=== PATIENT | female | born 2000 | race Asian ===

== ENCOUNTER 2025-06-27 06:21 | Outpatient (REF) | payer OTHER, SELFPAY ==
--- OUTSIDE RECORDS SUMMARY | 2025-06-24 18:05 | XMS_ITS | Encounter Summary ---
Author Organization [facility] Address [address] [place] [id number] Phone Care Team Providers Care Tool Shaper Set Up Operator Name Role Phone Pcp, Unknown Primary Care Provider Unavailabl e Reason for Visit * Reason Comments Abdominal Pain Constipation Encounter Details Date Type Department Care Team (Late st Contact Info) Description 06/24/2025 6:05 PM EDT - 06/24/2025 8:05 PM EDT Emergency [facility] [address] [place] [address] Roma Thao MD [address] [place] [address] [email or web address] Discharge Disposition: Home or Self Care Social History Tobacco Use Types Packs/Day Years Used Date Smoking Tobacco: Never Assessed Education Answer Date Recorded Are you interested in more education? Not on jenny e 06/24/2025 Are you concerned about learning? Not on file 06/24/2025 No 06/24/2025 No 06/24/2025 Digital Access Answer Date Recorded No 06/24/2025 No 06/24/2025 Reliable internet access at home? Not on file 06/24/2025 Device with a working camera? Not on file Intimate Partner Violence Answer Date R ecorded Are you denied basic needs s uch as food, clothing, or medical care? No 06/24/2025 In the past 12 months have y ou been in a relationship with a person who hurts, threatens, or tries to control you? No 06/24/2025 Are you denied basic needs s uch as food, clothing, or medical care? No 06/24/2025 In the past 12 months have y ou been in a relationship with a person who hurts, threatens, or tries to control you? No 06/24/2025 Comments Unknown Sex and Gender Information Value Date Recorded Sex Assigned at Female 06/24/2025 11:32 AM EDT Legal Sex Female 11:10 AM EDT Gender Identity Female 06/24/2025 11:32 AM EDT Sexual Orientation Straight 06/24/2025 6: 54 PM EDT documented as of this encounter Last Filed Vital Signs Vital Sign Reading Time Taken Comments Blood Pressure 121/90 06/24/2025 8:00 PM EDT Pulse 86 06/24/2025 8:00 PM EDT Temperature 36.9 C (98.4 F) 06/24/2025 8:00 PM EDT Respiratory Rate 15 06/24/2025 8:00 PM EDT Oxygen Saturation 97% 06/24/2025 8:00 PM EDT Inhaled Oxygen Concentration - - Weight 61.2 kg (135 lb) 06/24/2025 11:30 AM EDT Height 167.6 cm (5' 6 ) 06/24/2025 11:30 AM EDT Body Mass Index 21.79 06/24/2025 11:30 AM EDT documented in this encounter Functional Status * Calculated C-SSRS Risk Score (Lifetime/Recent) Answer Date of Assessment Author No Risk Indicated 06/24/2025 11:32 AM EDT Oma Sheikh RN * [place] Suicide Severity Rating Scale (Screener/Recent Self-Report) Question Answer Date of Assessment Author 1. Wish to be (Past 1 Month) No 025 11:32 AM EDT Oma Sheikh RN 2. Non-Specific Active Suici gutierrez Thoughts (Past 1 Month) No 06/24/2025 11:32 AM EDT Oma Sheikh RN 6. Suicidal Behavior (Lifetime) No 11:32 AM EDT Oma Sheikh RN documented as of this encounter Discharge Instructions * Discharge Instructions* Roma Thao MD - 06/24/2025 6:29 PM EDT Please return to the ED if you have any changes in your symptoms or new symptoms, if you experiencefever greater than 102 degrees, shortness of breath, worsening abdominal pain, worsening nausea/vomiting, fainting or any other symptoms you are concerned about. Otherwise, please follow-up with yourprimary care provider. * Attachments The following attachments cannot be sent through Care Everywhere. * Constipation (Thai) * Dietary Fiber (PCOI) documented in this encounter ED Notes * Dinorah Haley RN - 06/24/2025 8:04 PM EDT ED Discharge Nursing Note Pt medically cleared and prepared for discharge. Discharge instructions reviewed, pt verbalized understanding. Pt A&O x4, ambulatory with a steady gait. Pt denies any new or worsening medical complaints. Pt has safe ride home. All belongings with patient, all safety maintained. * Oma Sheikh RN - 06/24/2025 11:28 AM EDT Pt states I have had passing some dry and hard stool for around 3 weeks. It is not completely blocking because I am still passing watery and very thin bowel movements. I tried oral stimulant laxative and a fleet enema, 2 tap water enemas, miralax, and also magnesium supplements, and 2 suppositories. They all produce a bowel movement that are thin and watery but I feel like something is stuck. I went to a walk in clinic and the provider did a rectal exanimation and couldn't find the stool so I think it is stuck somewhere else. Pt states was seen at [facility] for this. Pt had abdominal Xray done one week ago, states does not have access to it. Pt reports lower abdominal pain and tailbone pressure. Pt is ambulatory with normal steady gait. * Roma Thao MD - 06/24/2025 11:10 AM EDT Chief Complaint Chief Complaint Patient presents with Abdominal Pain Constipation History of Present Illness The patient, Arnulfo Valiente,is a 24 y.o. female who presents for evaluation of Abdominal Pain and Constipation Patient presenting today for constipation. Patient states that she has felt a feeling of not completely emptying herself in the past couple of days. States that she has followed up with [facility] and they told her that there was nothing that they felt would need to do rectal exam. States that they also took an x-ray and did not tell her the results. Patient states that she has been taking [id number] laxatives and her stool looks thinner and so she feels like there might be an obstruction somewhere. Patient has no prior history of constipation that she is aware of. ROS 10-point ROS otherwise negative except as noted above and in HPI. Past Medical History No past medical history on file. Past Surgical History No past surgical history on file. Home Medications Prior to Admission medications Not on File Allergies No Known Allergies Social and Family History Social History Tobacco Use Smoking status: Not on file Smokeless tobacco: Not on file Substance Use Topics Alcohol use: Not on file Social History Substance and Sexual Activity Drug Use Not on file No family history on file. Physical Exam Vital Signs: ED Triage Vitals [06/24/25 1130] Encounter Vitals Group BP 133/76 Systolic BP Percentile Diastolic BP Percentile Heart Rate 93 Respiratory Rate 18 Temperature 36.7 ??C (98.1 ??F) Temp Source Tympanic SpO2 98 % Weight 135 lb Height 5' 6 Head Circumference Peak Flow Pain Score Pain Loc Pain Education Exclude from Growth Chart General Appearance: No acute distress. Alert + oriented x 3 (person, place, time) Skin: Warm. Dry. No cyanosis. Abdomen: Soft. Non-tender to palpation. No RLQ tenderness. No rigidity. No guarding. Neuro: Normal sensory. Normal motor. Normal level of consciousness. Psych: Cooperative. Laboratory Testing Results for orders placed or performed during the hospital encounter of 06/24/25 Lipase Specimen: Blood Result Value Ref Range LIPASE 27 16 - 63 U/L LFTs (hepatic panel) Specimen: Blood Result Value Ref Range ALKALINE PHOSPHATASE 57 39 - 117 U/L TOTAL BILIRUBIN 0.3 0.0 - 1.2 mg/dL DIRECT BILIRUBIN 0.1 0.0 - 0.2 mg/dL Bilirubin (Indirect) NOT CALCULATED 0 - 1.5 mg/dL AST 19 0 - 37 U/L ALT 13 0 - 40 U/L TOTAL PROTEIN 7.1 6.5 - 8.0 g/dL ALBUMIN 4.8 3.9 - 4.8 g/dL GLOBULIN 2.3 1 - 4.8 g/dL A/G Ratio 2.09 1.00 - 4.80 RATIO Basic metabolic panel Specimen: Blood Result Value Ref Range SODIUM 142 133 - 146 mmol/L CHLORIDE 106 96 - 108 mmol/L POTASSIUM 3.6 3.3 - 5.1 mmol/L CO2 24 21 - 35 mmol/L BUN 8 6 - 19 mg/dL CREATININE 0.50 0.5 - 1.5 mg/dL GLUCOSE 111 (H) 70 - 99 mg/dL CALCIUM 9.3 8.4 - 10.3 mg/dL EGFR >120 >59 mL/min/1.73m2 ANION GAP 16 10 - 20 mmol/L CBC and differential Specimen: Blood Result Value Ref Range WBC 6.38 4.00 - 11.00 K/uL RBC 3.93 (L) 4.00 - 5.20 M/uL HGB 12.2 12.0 - 16.0 g/dL HCT 36.4 36.0 - 46.0 % PLT 261 150 - 450 K/uL MCV 92.6 80.0 - 100.0 fL MCH 31.0 27.0 - 31.0 pg MCHC 33.5 32.0 - 36.0 g/dL RDW 12.0 11.5 - 14.5 % MPV 9.6 8.4 - 12.0 fL NRBC 0.00 0.00 /100 WBCs ABSOLUTE NRBC 0.00 0.00 K/uL DIFF METHOD Auto NEUTS 65.2 48.0 - 76.0 % LYMPHS 25.7 18.0 - 41.0 % MONOS 5.8 4.0 - 11.0 % EOS 1.7 0.0 - 5.0 % BASOS 1.1 0.0 - 1.5 % Granulocytes, immature (%) 0.5 0.0 - 0.9 % ABSOLUTE NEUTS 4.16 1.92 - 7.60 K/uL ABSOLUTE LYMPHS 1.64 0.72 - 4.10 K/uL ABSOLUTE MONOS 0.37 0.16 - 1.10 K/uL ABSOLUTE EOS 0.11 0.00 - 0.50 K/uL ABSOLUTE BASOS 0.07 0.00 - 0.15 K/uL Granulocytes, immature 0.03 0.00 - 0.09 K/uL Labs Reviewed CBC AND DIFFERENTIAL - Abnormal; Notable for the following components: Result Value RBC 3.93 (*) All other components within normal limits BASIC METABOLIC PANEL - Abnormal; Notable for the following components: GLUCOSE 111 (*) All other components within normal limits LFTS (HEPATIC PANEL) LIPASE URINALYSIS W/REFLEX URINE CULTURE Radiology Testing XR Abdomen Series Supine with Decubitus/Erect and Single View Chest Final Result Nonobstructive bowel gas pattern. Tests and imaging independently reviewed and interpreted. Notable for small amount of stool on x-ray. Electrolytes within normal limits, no kidney or liver dysfunction, no evidence of anemia. Given this we will get a urine sample to make sure that this is not the cause of her sensation of not fullyemptying. Will give patient follow-up with GI. Patient states that the GI appointment is in October and she did not want to wait that long. Counseled patient to call back again to see if there is any availability sooner or any cancellations. Negative for UTI. Rectal exam was completed per patient request with the nurse in the room. No hemorrhoids was palpated on the outside or the inside. Patient was concerned given that she felt a lump in the area and thought it could be a hemorrhoid. No other lesions seen on the outside. Vitals during ED stay were stable. Plan is for discharge. Category 1: Tests, Studies or Independent Historians: Prior Data Reviewed: Prior notes reviewed. Prior labs reviewed. Prior radiology tests reviewed. Category 2 and 3: Independent Interpretation of Tests, Consideration of Tests, or External Discussion of Results: Labs: Laboratory studies were interpreted. Radiology: Radiology studies were independently interpreted. Medications - No data to display Clinical Impressions as of 06/24/251828 Constipation, unspecified constipation type Diagnosis Clinical Impression Diagnosis Description Comment Final diagnosis Constipation, unspecified constipation type Constipation, unspecified constipation type -- Disposition Course: Stable Disposition: Home Roma Thao MD 06/24/251955 documented in this encounter Plan of Treatment Not on file documented as of this encounter Procedures Procedure Name Priority Date/Time Associated Diagnosis Comments URINALYSIS W/REFLEX URINE CULTURE STAT 06/24/2025 6:58 PM EDT URINE SEDIMENT STAT 06/24/2025 6:58 PM EDT LFTS (HEPATIC PANEL) STAT 06/24/2025 2:54 PM EDT CBC AND DIFFERENTIAL STAT 06/24/2025 2:54 PM EDT LIPASE STAT 06/24/2025 2:54 PM EDT BASIC METABOLIC PANEL STAT 06/24/2025 2:54 PM EDT XR ABDOMEN SERIES SUPINE WITH DECUBITIS/ERECT AND SINGLE VIEW CHEST Routine 06/24/2025 2:48 PM EDT documented in this encounter Results * (ABNORMAL) Urine sediment (06/24/2025 6:58 PM EDT) WBC 0-4(A) NONE SEEN /hpf [facility] RBC 6-10(A) NONE SEEN /hpf [facility] URINE EPITHELIAL 5-10(A) NONE SEEN [facility] MUCUS 1+(A) NONE SEEN /hpf [facility] BACTERIA Trace(A) NONE SEEN /hpf [facility] 06/24/2025 6:58 PM EDT 06/24/2025 7:15 PM EDT us Olypolo Thao MD URINE ORDERABLES Final Re sult [facility] [address] [place] [address] * (ABNORMAL) Urinalysis w/reflex Urine Culture (06/24/2025 6:58 PM EDT) COLOR Yellow Yellow [facility] CLARITY HAZY [facility] GLUCOSE Negative Negative [facility] BILI Negative Negative [facility] KETONES 1+(A) Negative [facility] SPECIFIC GRAVITY 1.020 1.005 - 1.030 [facility] BLOOD 2+(A) Negative [facility] PH 6.0 5.0 - 8.0 [facility] Protein-UA Negative Negative [facility] NITRITE Negative Negative [facility] Leukocyte esterase, ur Negative Negative [facility] Urine (Urine) 06/24/2025 6:5 8 PM EDT 06/24/2025 7:15 PM EDT Roma Thao MD URINE ORDERABLES Final Re sult Performing Organization Address [facility]/ZIP Co de Phone Number [address] [address] * Lipase (06/24/2025 2:54 PM EDT) LIPASE 27 16 - 63 U/L [facility] Blood 06/24/2025 2:54 PM EDT 06/24/2025 3:09 PM EDT Simba Dumas PA-C LAB BLOOD ORDERABLES Final Re sult Performing Organization Address [facility] Co de Phone Number [address] [address] * LFTs (hepatic panel) (06/24/2025 2:54 PM EDT) ALKALINE PHOSPHATASE 57 39 - 117 U/L [facility] TOTAL BILIRUBIN 0.3 0.0 - 1.2 mg/dL [facility] DIRECT BILIRUBIN 0.1 0.0 - 0.2 mg/dL [facility] Bilirubin (Indirect) NOT CALCULATED 0 - 1.5 mg/dL [facility] AST 19 0 - 37 U/L [facility] ALT 13 0 - 40 U/L [facility] TOTAL PROTEIN 7.1 6.5 - 8.0 g/dL [facility] ALBUMIN 4.8 3.9 - 4.8 g/dL [facility] GLOBULIN 2.3 1 - 4.8 g/dL [facility] A/G Ratio 2.09 1.00 - 4.80 RATIO [facility] Blood 06/24/2025 2:54 PM EDT 06/24/2025 3:09 PM EDT Simba Dumas PA-C LAB BLOOD ORDERABLES Final Re sult Performing Organization Address City/[facility]/ZIP Co de Phone Number [address] [address] * (ABNORMAL) Basic metabolic panel (06/24/2025 2:54 PM EDT) SODIUM 142 133 - 146 mmol/L [facility] CHLORIDE 106 96 - 108 mmol/L [facility] POTASSIUM 3.6 3.3 - 5.1 mmol/L [facility] CO2 24 21 - 35 mmol/L [facility] BUN 8 6 - 19 mg/dL [facility] CREATININE 0.50 0.5 - 1.5 mg/dL [facility] GLUCOSE 111(H) 70 - 99 mg/dL [facility] CALCIUM 9.3 8.4 - 10.3 mg/dL [facility] EGFR >120 >59 mL/min/1.7 3m2 [facility] Comment:Estimated glomerular filtration rate calculated using the CKD-EPI refit equation. ANION GAP 16 10 - 20 mmol/L [facility] Blood 06/24/2025 2:54 PM EDT 06/24/2025 3:09 PM EDT Simba Dumas PA-C LAB BLOOD ORDERABLES Final Re sult Performing Organization Address City/[facility]/ZIP Co de Phone Number [address] [address] * (ABNORMAL) CBC and differential (06/24/2025 2:54 PM EDT) WBC 6.38 4.00 - 11.00 K/uL [facility] RBC 3.93(L) 4.00 - 5.20 M/uL [facility] HGB 12.2 12.0 - 16.0 g/dL [facility] HCT 36.4 36.0 - 46.0 % [facility] PLT 261 150 - 450 K/uL [facility] MCV 92.6 80.0 - 100.0 fL [facility] MCH 31.0 27.0 - 31.0 pg [facility] MCHC 33.5 32.0 - 36.0 g/dL [facility] RDW 12.0 11.5 - 14.5 % [facility] MPV 9.6 8.4 - 12.0 fL [facility] NRBC 0.00 0.00 /100 WBCs [facility] ABSOLUTE NRBC 0.00 0.00 K/uL [facility] DIFF METHOD Auto [facility] NEUTS 65.2 48.0 - 76.0 % [facility] LYMPHS 25.7 18.0 - 41.0 % [facility] MONOS 5.8 4.0 - 11.0 % [facility] EOS 1.7 0.0 - 5.0 % [facility] BASOS 1.1 0.0 - 1.5 % [facility] Granulocytes, immature (%) 0.5 0.0 - 0.9 % [facility] ABSOLUTE NEUTS 4.16 1.92 - 7.60 K/uL [facility] ABSOLUTE LYMPHS 1.64 0.72 - 4.10 K/uL [facility] ABSOLUTE MONOS 0.37 0.16 - 1.10 K/uL [facility] ABSOLUTE EOS 0.11 0.00 - 0.50 K/uL [facility] ABSOLUTE BASOS 0.07 0.00 - 0.15 K/uL [facility] Granulocytes, immature 0.03 0.00 - 0.09 K/uL [facility] Blood 06/24/2025 2:54 PM EDT 06/24/2025 3:09 PM EDT us Simba Dumas PA-C LAB BLOOD ORDERABLES Final Re sult [facility] [address] [place] [address] * XR Abdomen Series Supine with Decubitus/Erect and Single View Chest (06/24/2025 2:48 PM EDT) Anatomical Region Laterality Modality Abdomen, Chest Computed Radiogr aphy 06/24/2025 4:01 PM EDT Impressions 06/24/2025 4:03 PM EDT Nonobstructive bowel gas pattern. Narrative 06/24/2025 4:03 PM EDT XR ABDOMEN SERIES SUPINE WITH DECUBITIS/ERECT AND SINGLE VIEW CHEST Referring clinician's provided indication for this examination in Epic: Constipation; r/o obstruction COMPARISON: None FINDINGS: CHEST:Lungs are clear. Heart size is normal. ABDOMEN: No dilated loops of bowel are present to suggest an obstruction. There is a mild amount retained feces within the colon. Procedure Note Lamonte Figueroa MD - 06/24/2025 XR ABDOMEN SERIES SUPINE WITH DECUBITIS/ERECT AND SINGLE VIEW CHEST Referring clinician's provided indication for this examination in Epic:Constipation; r/o obstruction COMPARISON: None FINDINGS: CHEST:Lungs are clear. Heart size is normal. ABDOMEN: No dilated loops of bowel are present to suggest an obstruction.There is a mild amount retained feces within the colon. IMPRESSION: Nonobstructive bowel gas pattern. Simba Dumas PA-C IMG XR ABDOMEN Final Result documented in this encounter Visit Diagnoses Diagnosis Constipation, unspecified constipation type- Primary documented in this encounter Care Teams Tool Shaper Set Up Operator Relationship Specialty Start Date End Date Pcp, Unknown PCP - General 06/24/25 documented as of this encounter Additional Source Comments The information contained in this document represents components of the legal health record. It is not the complete legal health record.[facility]
--- OUTSIDE RECORDS SUMMARY | 2025-06-27 06:23 | XMS_ITS | Clinical Summary ---
Author Organization [facility] Address [address] [place] [address] [place] [id number] Phone Care Team Providers Care Liquid Flavor Compounder Name Role Phone Pcp, Unknown Primary Care Provider Unavailabl e Allergies No known active allergies Encounters Date Type Department Care Team Description 06/24/2025 6:05 PM EDT - 06/24/2025 8:05 PM EDT Emergency [facility] [address] [place] [address] Roma Thao MD Discharge Disposition: Home or Self Care from Last 3 Months Social History Tobacco Use Types Packs/Day Years [...] Orientation Straight 06/24/2025 6: 54 PM EDT Last Filed Vital Signs Vital Sign Reading [...] Mass Index 21.79 06/24/2025 11:30 AM EDT Plan of Treatment Not on file Medical Devices Not on file Procedures Procedure Name Priority Date/Time Associated Diagnosis Comments URINE SEDIMENT STAT 06/24/2025 6:58 PM EDT URINALYSIS W/REFLEX URINE CULTURE STAT 06/24/2025 6:58 PM EDT LIPASE STAT 06/24/2025 2:54 PM EDT LFTS (HEPATIC PANEL) STAT 06/24/2025 2:54 PM EDT BASIC METABOLIC PANEL STAT 06/24/2025 2:54 PM EDT CBC AND DIFFERENTIAL STAT 06/24/2025 2:54 PM EDT XR ABDOMEN SERIES SUPINE WITH DECUBITIS/ERECT AND SINGLE VIEW CHEST Routine 06/24/2025 2:48 PM EDT from Last 3 Months Results * (ABNORMAL) Urinalysis w/reflex Urine Culture (06/24/2025 6:58 PM EDT) [facility] COLOR Yellow Yellow [facility] CLARITY HAZY [facility] GLUCOSE Negative Negative [facility] BILI Negative Negative [facility] KETONES 1+(A) Negative [facility] SPECIFIC GRAVITY 1.020 1.005 - 1.030 [facility] BLOOD 2+(A) Negative [facility] PH 6.0 5.0 - 8.0 [facility] Protein-UA Negative Negative [facility] NITRITE Negative Negative [facility] Leukocyte esterase, ur Negative Negative [facility] Urine (Urine) 06/24/2025 6:5 8 PM EDT 06/24/2025 7:15 PM EDT us Roma Thao MD URINE ORDERABLES Final Re sult Performing Organization Address [facility] Co de Phone Number [address] [address] * (ABNORMAL) Urine sediment (06/24/2025 6:58 PM EDT) WBC 0-4(A) NONE SEEN /hpf [facility] RBC 6-10(A) NONE SEEN /hpf [facility] URINE EPITHELIAL 5-10(A) NONE SEEN [facility] MUCUS 1+(A) NONE SEEN /hpf [facility] BACTERIA Trace(A) NONE SEEN /hpf [facility] 06/24/2025 6:58 PM EDT 06/24/2025 7:15 PM EDT us Roma Thao MD URINE ORDERABLES Final Re sult Performing Organization Address [facility] Co de Phone Number [address] [address] * LFTs (hepatic panel) (06/24/2025 2:54 PM EDT) ALKALINE PHOSPHATASE 57 39 - 117 U/L [facility] TOTAL BILIRUBIN 0.3 0.0 - 1.2 mg/dL [facility] DIRECT BILIRUBIN 0.1 0.0 - 0.2 mg/dL [facility] Bilirubin (Indirect) NOT CALCULATED 0 - 1.5 mg/dL [facility] AST 19 0 - 37 U/L [facility] ALT 13 0 - 40 U/L [facility] TOTAL PROTEIN 7.1 6.5 - 8.0 g/dL [facility] ALBUMIN 4.8 3.9 - 4.8 g/dL [facility] GLOBULIN 2.3 1 - 4.8 g/dL [facility] A/G Ratio 2.09 1.00 - 4.80 RATIO [facility] Blood 06/24/2025 2:54 PM EDT 06/24/2025 3:09 PM EDT us Simba Dumas PA-C LAB BLOOD ORDERABLES Final Re sult Performing Organization Address City/State/[facility] Co de Phone Number [facility] [address] [place] [address] * (ABNORMAL) CBC and differential (06/24/2025 2:54 PM EDT) WBC 6.38 4.00 - 11.00 K/uL [facility] RBC 3.93(L) 4.00 - 5.20 M/uL [facility] HGB 12.2 12.0 - 16.0 g/dL [facility] HCT 36.4 36.0 - 46.0 % [facility] PLT 261 150 - 450 K/uL [facility] MCV 92.6 80.0 - 100.0 fL [facility] MCH 31.0 27.0 - 31.0 pg [facility] MCHC 33.5 32.0 - 36.0 g/dL [facility] RDW 12.0 11.5 - 14.5 % [facility] MPV 9.6 8.4 - 12.0 fL [facility] NRBC 0.00 0.00 /100 WBCs [facility] ABSOLUTE NRBC 0.00 0.00 K/uL [facility] DIFF METHOD Auto [facility] NEUTS 65.2 48.0 - 76.0 % [facility] LYMPHS 25.7 18.0 - 41.0 % [facility] MONOS 5.8 4.0 - 11.0 % [facility] EOS 1.7 0.0 - 5.0 % [facility] BASOS 1.1 0.0 - 1.5 % [facility] Granulocytes, immature (%) 0.5 0.0 - 0.9 % [facility] ABSOLUTE NEUTS 4.16 1.92 - 7.60 K/uL [facility] ABSOLUTE LYMPHS 1.64 0.72 - 4.10 K/uL [facility] ABSOLUTE MONOS 0.37 0.16 - 1.10 K/uL [facility] ABSOLUTE EOS 0.11 0.00 - 0.50 K/uL [facility] ABSOLUTE BASOS 0.07 0.00 - 0.15 K/uL [facility] Granulocytes, immature 0.03 0.00 - 0.09 K/uL [facility] Blood 06/24/2025 2:54 PM EDT 06/24/2025 3:09 PM EDT Simba HUFFMAN-C LAB BLOOD ORDERABLES Final Re sult Performing Organization Address [facility]/ZIP Co de Phone Number [address] [address] * Lipase (06/24/2025 2:54 PM EDT) LIPASE 27 16 - 63 U/L [facility] Blood 06/24/2025 2:54 PM EDT 06/24/2025 3:09 PM EDT Simba Dumas PA-C LAB BLOOD ORDERABLES Final Re sult Performing Organization Address [facility]/ZIP Co de Phone Number [address] [address] * (ABNORMAL) Basic metabolic panel (06/24/2025 2:54 PM EDT) SODIUM 142 133 - 146 mmol/L [facility] CHLORIDE 106 96 - 108 mmol/L [facility] POTASSIUM 3.6 3.3 - 5.1 mmol/L [facility] CO2 24 21 - 35 mmol/L [facility] BUN 8 6 - 19 mg/dL [facility] CREATININE 0.50 0.5 - 1.5 mg/dL [facility] GLUCOSE 111(H) 70 - 99 mg/dL [facility] CALCIUM 9.3 8.4 - 10.3 mg/dL [facility] EGFR >120 >59 mL/min/1.7 3m2 [facility] Comment:Estimated glomerular filtration rate calculated using the CKD-EPI refit equation. ANION GAP 16 10 - 20 mmol/L [facility] Blood 06/24/2025 2:54 PM EDT 06/24/2025 3:09 PM EDT us Simba Dumas PA-C LAB BLOOD ORDERABLES Final Re sult [facility] [address] [place] [address] * XR Abdomen Series Supine with Decubitus/Erect [...] Dumas PA-C IMG XR ABDOMEN Final Result from Last 3 Months Insurance [employer] [facility] Member Subscriber Plan / Payer (Ef fective 2024-Present) Name:Arnulfo Valiente Relation to Subscriber:Self Name:Arnulfo Valiente Payer ID:[id number] ([facility]) Type:PPO Address: [address] [employer] [facility] Member Subscriber Plan / Payer (Ef fective 2024-Present) Name:Arnulfo Valiente Relation to Subscriber:Self Name:Arnulfo Valiente Payer ID:[id number] (NA) Type:PPO Address: [address] [employer] [facility] [facility] [employer] [facility] [employer] [facility] [employer] [facility] Care Teams Liquid Flavor Compounder Relationship Specialty Start Date End Date Pcp, Unknown PCP - General 06/24/25 Additional Source Comments The information contained in this document represents components of the legal health record. It is not the complete legal health record.[facility]
--- OUTSIDE RECORDS SUMMARY | 2025-06-27 06:23 | XMS_ITS | Clinical Summary ---
Author Organization [facility] Address [address] [place] [address] Care Team Providers Care Circuit Judge Name Role Phone Unavailable Primary Care Provider Unavailabl e Social History Tobacco Use Types Packs/Day Years Used Date Smoking Tobacco: Never Assessed Alcohol Use Answer Date Recorded Alcohol Audit Score Not on file 10/11/2023 Comments Unknown Sex and Gender Information Value Date Recorded Sex Assigned at Not on file Legal Sex Female 7:31 AM PDT Gender Identity Not on file Sexual Orientation Not on file Plan of Treatment Not on file
--- OUTSIDE RECORDS SUMMARY | 2025-06-27 06:23 | XMS_ITS | Clinical Summary ---
Author Organization [facility] Address [address] [place] [address] Care Team Providers Care Pulverizer Tender Name Role Phone Unavailable Primary Care Provider Unavailabl e Immunizations Immunization Administration Dates Next Due SARS-COV-2 (COVID-19) VACCIN E PRIMARY SERIES ([employer]), MRNA, LNP-S, PF, 30 MCG/0.3 ML DOSE 02/22/2021 Social History Tobacco Use Types Packs/Day Years Used Date Smoking Tobacco: Never Assessed Comments Unknown Sex and Gender Information Value Date Recorded Sex Assigned at Not on file Legal Sex Female 9:11 AM PDT Gender Identity Not on file Sexual Orientation Not on file Plan of Treatment Health Maintenance Due Date Last Done Comments COVID-19 Vaccination (2 20 24-25 season) 2024 02/22/2021 Pneumococcal vaccination Aged Out No longer eligible based on patient's age to complete this topic Insurance [facility]
--- OUTSIDE RECORDS SUMMARY | 2025-06-27 06:23 | XMS_ITS | Referral Summary ---
Author Organization [facility] Address [address] [place] [address] Care Team Providers Care Gas Meter Reader Name Role Phone Unavailable Primary Care Provider Unavailabl e Immunizations Immunization Administration Dates Next Due SARS-COV-2 (COVID-19) VACCIN E PRIMARY SERIES ([employer]), MRNA, LNP-S, PF, 30 MCG/0.3 ML DOSE 02/22/2021 Social History Tobacco Use Types Packs/Day Years Used Date Smoking Tobacco: Never Assessed Comments Unknown Sex and Gender Information Value Date Recorded Sex Assigned at Not on file Legal Sex Female 9:11 AM PDT Gender Identity Not on file Sexual Orientation Not on file Plan of Treatment Not on file Insurance [facility]
--- OUTSIDE RECORDS SUMMARY | 2025-06-27 06:23 | XMS_ITS | Referral Summary ---
Author Organization [facility] Address [address] [place] [address] Care Team Providers Care Patient Services Technician Name Role Phone Unavailable Primary Care Provider [...]
== END 2025-06-27 06:22 | disposition home or self-care (01) ==
LOC: HO.UMASIMG 06:21
PROVIDERS: Visit Provider Nurse Practitioner Family
DX: Z13.89 Encounter for screening for other disorder (principal)